=== PATIENT | male | born 1955 | race Caucasian/White ===

== ENCOUNTER 2019-07-17 10:54 | Emergency (ER) | payer MEDICARE, OTHER, SELFPAY ==
[2019-07-17] VITALS (78 sets, daily range): BP systolic 107–158; BP diastolic 59–96; PULSE 69–74; RESP 11–35; TEMP 36.3–36.7; O2SAT 92–100
--- NOTE | 2019-07-17 11:13 | ED.GENADUL_ITS ---
Discharge Plan Disposition Patient Disposition: [facility] Condition: Stable Discharge Details Chief Complaint: Dizzy/Sync Clinical Impression: STEMI (ST elevation myocardial infarction), Dizziness Primary Care Provider: Andrew Sotelo ED Provider: Diana García Home Meds and New Rx's Prescriptions: No Action Victoza 2-Alex 0.6 mg/0.1 mL (18 mg/3 mL) Pen Injector 1.2 mg SUBCUT DAILY RF: 0 fosinopril 10 mg Tablet 10 mg PO DAILY RF: 0 metformin 500 mg Tablet 500 mg PO BID RF: 0 aspirin 325 mg Tablet 325 mg PO DAILY RF: 0 isosorbide mononitrate 30 mg Tablet Extended Release 24 Hr 30 mg PO DAILY RF: 0 clopidogrel 75 mg Tablet 75 mg PO DAILY RF: 0 allopurinol 100 mg Tablet 100 mg PO DAILY RF: 0 famotidine 20 mg Tablet 20 mg PO DAILY RF: 0 ascorbic acid (vitamin C) [Vitamin C] 500 mg Tablet 500 mg PO DAILY RF: 0 nitroglycerin 0.4 mg Tablet, Sublingual 0.4 mg SUBLINGUAL Q5-15M PRNRF: 0 folic acid 1 mg Tablet 1 mg PO DAILY RF: 0 fluticasone propionate [Flonase Allergy Relief] 50 mcg/actuation [place],Suspension 1 spray INTRANASAL DAILY PRNRF: 0 ezetimibe 10 mg Tablet 10 mg PO DAILY RF: 0 rosuvastatin 20 mg Tablet 20 mg PO DAILY RF: 0 Lantus Solostar U-100 Insulin 100 unit/mL (3 mL) Insulin Pen See Rx Instructions .ROUTE .COMPLEX RF: 0 ranolazine 1,000 mg Tablet Extended Release 12 Hr 1,000 mg PO BID RF: 0 magnesium chloride 64 mg Tablet,Delayed Release (Dr/Ec) 250 mg PO DAILY RF: 0 Discharge Data Discharge Date/Time-TO BE ENTERED AT DEPARTURE: 07/17/19 13:16 Medical Decision Making 1110 -- 63-year-old male with multiple medical problems including CAD status post CABG, diabetes, hypertension, hyperlipidemia and obesity with dizziness and vomiting since this morning. He denies chest pain or shortness of breath. Patient appears somewhat uncomfortable with slowed responses but no focal deficits. Presentation does not appear consistent with acute CVA but rather possibly dehydration from the frequent vomiting. EKG notes a rate of 73, sinus, first-degree block with [address] depression in 1 and aVL and [address] elevation in lead III. No old EKG to compare. Will call patient's hospital in [place] for old EKGs. Differential diagnosis includes ACS, electrolyte abnormality, viral illness, gastroenteritis, DKA, UTI, pneumonia. Will place an IV, give bolus IV fluids, screening labs, urinalysis, chest x-ray and dose of Zofran and reassess. Old EKGs from [place] date back to 2011 and this appears new compared to these EKGs which had no depression or ST elevation. Also reviewed EKG with Dr. Liborio Rooney, agrees does not meet criteria to call official STEMI, will call [facility] for consult/possible transfer. Labs reviewed. Normal white blood cell count, electrolytes. Mag 1.7. Troponin negative. BNP and Lipase within normal limits. Chest x-ray negative. Urinalysis negative for infection. 1230 -- d/w [facility] cardiology - they are calling a STEMI alert. Patient took 325 aspirin this morning. Would like 300 mg Plavix, heparin bolus and drip and full dose lytics. She accepted for transfer to [facility]. Accepting physician Dr. Kamara. Patient and informed of plan. Patient states that he had a recent EKG with [facility] in [place], [place] in the past 6 months. Unable to obtain these recent EKGs from [facility]. Medical Records Medical records reviewed: Yes I reviewed the patient's medical records. Imaging Data Radiologic Study: Radiologist's impression: XR Chest, 1 View EXAM DATE/TIME: 07/17/2019 11:24 AM CLINICAL HISTORY: 63 years old, male; Other: Nausea and vomiting, and dizziness since this morning TECHNIQUE: Imaging protocol: XR of the chest Views: 1 view. COMPARISON: No relevant prior studies available. FINDINGS: Lungs: Unremarkable. No consolidation. Pleural space: Unremarkable. No pleural effusion. No pneumothorax. Heart/Mediastinum: Unremarkable. No cardiomegaly. Diaphragm: Elevated right hemidiaphragm Bones/joints: Median sternotomy Other findings: Overlying EKG wires IMPRESSION: No acute process Lab Data Lab results reviewed: Yes I reviewed the patient's lab results. Labs: Laboratory Tests Range/Units 07/17/19 07/17/19 07/17/19 11:25 11:25 11:25 WBC (4.4-10.8) k/cumm 10.02 RBC (4.50-6.00) m/cumm 4.49 L Hgb (13.5-17.5) g/dL 14.9 Hct (40.0-50.0) % 43.2 MCV (80-95) fL 96.2 H MCH (27.0-33.0) pg 33.2 H MCHC (32.0-36.0) g/dL 34.5 RDW (11.8-14.1) % 13.0 Plt Count (130-400) x1000/uL 201 MPV (8.0-11.0) fL 10.7 Immature Gran % 0.4 Neutrophils % 75.3 Lymphocytes % 17.8 Monocytes % 5.1 Eosinophils % 1.3 Basophils % 0.1 Absolute Neutrophils (1.2-6.7) k/cumm 7.55 H Absolute Lymphocytes (1.2-3.4) k/cumm 1.78 Absolute Monocytes (0.11-0.7) k/cumm 0.51 Absolute Eosinophils (0.0-0.7) k/cumm 0.13 Absolute Basophils (0.0-0.2) k/cumm 0.01 Sodium (136-145) mmol/L 140 Potassium (3.5-5.1) mmol/L 4.8 Chloride (98-107) mmol/L 103 Carbon Dioxide (21.0-32.0) mmol/L 26.0 Anion Gap (3-11) mmol/L 11.0 BUN (7-18) mg/dL 28 H Creatinine (0.70-1.30) mg/dL 1.49 H Estimated GFR/1.73 m2 (mL/min/1.73m2) 47.48 Glucose (70-100) mg/dL 302 H Calcium (8.5-10.1) mg/dL 8.8 Magnesium (1.8-2.4) mg/dL 1.7 L Total Bilirubin (0.2-1.0) mg/dL 0.6 AST (15-37) U/L 26 ALT (16-63) U/L 43 Alkaline Phosphatase (46-116) U/L 65 Troponin I (0.00-0.06) ng/mL < 0.05 NT-Pro-B Natriuret Pep ( - 299) pg/mL 111 Total Protein (6.4-8.2) g/dL 7.2 Albumin (3.4-5.0) g/dL 3.7 Lipase (73-393) U/L 192 Urine Color (Yellow) Urine Clarity (Clear) Urine pH (5-8) Ur Specific [place] (1.005-1.025) Urine Protein (Negative) mg/dL Urine Ketones (Negative) mg/dL Urine Blood (Negative) Urine Nitrite (Negative) Urine Bilirubin (Negative) Urine Urobilinogen (Up TO 0.2) EU/dL Ur Leukocyte Esterase (Negative) Urine RBC (0-2) Urine WBC (0-5) HPF Ur Epithelial Cells (Negative) HPF Urine Crystals (Negative) HPF Urine Bacteria (Negative) HPF Urine Casts (Negative) LPF Urine Mucus (Negative) Ur Culture Indicated? Urine Glucose (Negative) mg/dL Range/Units 07/17/19 11:55 WBC (4.4-10.8) k/cumm RBC (4.50-6.00) m/cumm Hgb (13.5-17.5) g/dL Hct (40.0-50.0) % MCV (80-95) fL MCH (27.0-33.0) pg MCHC (32.0-36.0) g/dL RDW (11.8-14.1) % Plt Count (130-400) x1000/uL MPV (8.0-11.0) fL Immature Gran % Neutrophils % Lymphocytes % Monocytes % Eosinophils % Basophils % Absolute Neutrophils (1.2-6.7) k/cumm Absolute Lymphocytes (1.2-3.4) k/cumm Absolute Monocytes (0.11-0.7) k/cumm Absolute Eosinophils (0.0-0.7) k/cumm Absolute Basophils (0.0-0.2) k/cumm Sodium (136-145) mmol/L Potassium (3.5-5.1) mmol/L Chloride (98-107) mmol/L Carbon Dioxide (21.0-32.0) mmol/L Anion Gap (3-11) mmol/L BUN (7-18) mg/dL Creatinine (0.70-1.30) mg/dL Estimated GFR/1.73 m2 (mL/min/1.73m2) Glucose (70-100) mg/dL Calcium (8.5-10.1) mg/dL Magnesium (1.8-2.4) mg/dL Total Bilirubin (0.2-1.0) mg/dL AST (15-37) U/L ALT (16-63) U/L Alkaline Phosphatase (46-116) U/L Troponin I (0.00-0.06) ng/mL NT-Pro-B Natriuret Pep ( - 299) pg/mL Total Protein (6.4-8.2) g/dL Albumin (3.4-5.0) g/dL Lipase (73-393) U/L Urine Color (Yellow) Dark yellow Urine Clarity (Clear) Clear Urine pH (5-8) 5.0 Ur Specific [place] (1.005-1.025) >= 1.030 H Urine Protein (Negative) mg/dL 100 H Urine Ketones (Negative) mg/dL Trace H Urine Blood (Negative) Negative Urine Nitrite (Negative) Negative Urine Bilirubin (Negative) Negative Urine Urobilinogen (Up TO 0.2) EU/dL 0.2 Ur Leukocyte Esterase (Negative) Negative Urine RBC (0-2) Negative Urine WBC (0-5) HPF 0-2 Ur Epithelial Cells (Negative) HPF Few Urine Crystals (Negative) HPF Negative Urine Bacteria (Negative) HPF Negative Urine Casts (Negative) LPF 5-10 hyaline Urine Mucus (Negative) Moderate Ur Culture Indicated? No Urine Glucose (Negative) mg/dL 500 H ECG Data Attestation: I personally reviewed and interpreted this ECG (s) as follows: Interpretation: Rate of 73, sinus, first-degree block. There is [address] depression in 1 and aVL with [address] elevation in lead III. RI 236. QTc 445. QRS 118. HPI General Mode of arrival: ambulatory . Date/Time Provider Initiated Documentation: 07/17/19 11:05 . Limitations to Documentation: no limitations . Information obtained by: patient and family . HPI Narrative: Patient is a 63-year-old male with a history of coronary artery disease and CABG, diabetes, hypertension, hyperlipidemia who presents with dizziness and vomiting that started this morning. He states he has had similar episodes in the past but usually resolve once his vomiting passes. He states continued vomiting today which is mainly consistent of water, food and bile. He denies any hematemesis, diarrhea or melena. He states he felt fine yesterday. He states yesterday he and his drove from [place] to visit from on and he was feeling fine. He denies any fever, headache, blurry vision, chest pain, shortness of breath, abdominal pain, urinary symptoms or unilateral numbness or weakness. He states his last bowel movement was yesterday within normal limits. He denies any leg pain or swelling. Related Data Home Medications Medication Instructions Recorded Confirmed allopurinol 100 mg PO DAILY 07/17/19 07/17/19 ascorbic acid (vitamin C) [Vitamin 500 mg PO DAILY 07/17/19 07/17/19 C] aspirin 325 mg PO DAILY 07/17/19 07/17/19 clopidogrel 75 mg PO DAILY 07/17/19 07/17/19 ezetimibe 10 mg PO DAILY 07/17/19 07/17/19 famotidine 20 mg PO DAILY 07/17/19 07/17/19 fluticasone propionate [Flonase 1 spray INTRANASAL DAILY PRN 07/17/19 07/17/19 Allergy Relief] folic acid 1 mg PO DAILY 07/17/19 07/17/19 fosinopril 10 mg PO DAILY 07/17/19 07/17/19 insulin glargine [Lantus Solostar See Rx Instructions .ROUTE .COMPLEX 07/17/19 07/17/19 U-100 Insulin] isosorbide mononitrate 30 mg PO DAILY 07/17/19 07/17/19 liraglutide [Victoza 2-Alex] 1.2 mg SUBCUT DAILY 07/17/19 07/17/19 magnesium chloride 250 mg PO DAILY 07/17/19 07/17/19 metformin 500 mg PO BID 07/17/19 07/17/19 nitroglycerin 0.4 mg SUBLINGUAL Q5-15M PRN 07/17/19 07/17/19 ranolazine 1,000 mg PO BID 07/17/19 07/17/19 rosuvastatin 20 mg PO DAILY 07/17/19 07/17/19 Allergies Allergy/AdvReac Type Severity Reaction Status Date / Time No Known Allergies Allergy Unverified 07/17/19 11:06 General Stated Complaint: Dizzy/Sync SEEMA: 2 Review of Systems Review of Systems ROS Unobtainable: All systems reviewed & are unremarkable except as noted in HPI and below Constitutional Constitutional: Reports as per HPI, Denies chills and Denies fever(s) Eyes Eyes: Denies blurry vision ENT Ears, Nose, Mouth, and Throat: Reports dizziness, Denies sore throat and Denies throat swelling Cardiovascular Cardiovascular: Denies chest pain and Denies dyspnea Respiratory Respiratory: Denies cough and Denies dyspnea Gastrointestinal Gastrointestinal: Denies abdominal pain, Denies diarrhea and Reports vomiting Genitourinary Genitourinary: Denies hematuria and Denies dysuria Musculoskeletal Musculoskeletal: Denies back pain and Denies numbness Integumentary/Breasts Skin/Breast: Denies lesions and Denies rash Neurologic Neurologic: Reports dizziness, Denies focal weakness and Denies numbness Allergic/Immunologic Allergic/Immunologic: Denies throat swelling [facility] Medical History Coronary artery disease (Chronic) Diabetes (Chronic) HTN (hypertension) (Chronic) Hx of hyperlipidemia (Acute) Surgical History History of hernia repair (Chronic) History of prostatectomy (Chronic) Hx of CABG (Chronic) Social History Smoking/Tobacco Use Status: Never Alcohol Intake: current Alcohol Intake frequency: a few times a month Drug use: Never Substance use type: does not use Do you feel safe at home: Yes Do you feel safe in your relationship?: Yes Exam Const General: cooperative, healthy appearing and no acute distress HENNV Head: normal to inspection Face and sinus: normal facial exam Eyes General: appearance normal, both eyes and all related structures Pupils: PERRL EOM: EOM intact bilaterally Neck Neck: normal visual inspection and No submandibular swelling Lymphatic: no lymphadenopathy noted Chest Chest: normal inspection of the chest, no tenderness and other (midline scar, well healed, c/w CABG) Resp Effort & Inspection: normal respiratory effort and able to speak in complete sentences Auscultation: clear to auscultation bilaterally Cardio Rate: regular rate Rhythm: regular rhythm GI Inspection: normal to inspection Palpation: soft, not firm, not rigid and nontender Auscultation: normal bowel sounds Back/Spine/Pelvis Thoracic/Lumbar Spine: thoracic and lumbar spine normal to inspection Skin General skin exam: no rashes or lesions noted Neuro General: alert, awake, oriented x3 and moves all extremities Cranial Nerves: CN's II-XI intact bilaterally Cognition: normal cognition Speech: no expressive aphasia, no receptive aphasia and other (speech somewhat slowed but not slurred) Motor: muscle tone normal throughout and strength 5/5 throughout Sensory Exam: no sensory deficits noted Extrem General: normal to inspection, full ROM, normal capillary refill, no calf tenderness bilaterally and no edema Psych Appearance: grossly normal Mental Status: mental status grossly normal Speech and Movement: speech and movement normal Affect: normal affect Course Vital Signs Vital signs: Vital Signs Temperature 97.3 F L 07/17/19 11:00 Pulse 73 07/17/19 11:00 Respiratory Rate 21 07/17/19 11:00 Blood Pressure 158/79 H 07/17/19 11:00 Pulse Oximetry 100 07/17/19 11:00 Temperature 97.3 F L 07/17/19 11:00 Temperature Source Skin 07/17/19 11:00 Pulse 73 07/17/19 11:00 Respiratory Rate 21 07/17/19 11:00 Blood Pressure 158/79 H 07/17/19 11:00 Blood Pressure Position Sitting 07/17/19 11:00 Pulse Oximetry 100 07/17/19 11:00 Oxygen Delivery Method Room Air 07/17/19 11:00 Oxygen Flow Rate 0 07/17/19 11:00 Pain Level 0 07/17/19 11:00
--- NOTE | 2019-07-17 11:25 | DI.RAD_ITS ---
SYMPTOM/DIAGNOSIS: DIZZY, VOMITING PORTABLE AP CHEST: The lungs are well expanded and free of infiltrate. There is no evidence of a pleural effusion or pneumothorax. The heart is not enlarged. There is some elevation of the right hemidiaphragm. The patient is status post median sternotomy. Overlying EKG wires are apparent. SUMMARY: No acute abnormality is seen.
[2019-07-17 11:33] LABS: Abs Immature Grans 0.04 k/cumm (0.0-0.09); Absolute Basophil Count 0.01 k/cumm (0.0-0.2); Absolute Eosinophil Count 0.13 k/cumm (0.0-0.7); Absolute Lymphocyte Count 1.78 k/cumm (1.2-3.4); Absolute Monocyte Count 0.51 k/cumm (0.11-0.7); Absolute Neutrophil Count 7.55 k/cumm (1.2-6.7); Basophils % 0.1; Eosinophils % 1.3; HCT 43.2 % (40.0-50.0); HGB 14.9 g/dL (13.5-17.5); Immature Grans % 0.4; Lymphocytes % 17.8; Mean Corp. HGB Concentration 34.5 g/dL (32.0-36.0); Mean Corpuscular Hemoglobin 33.2 pg (27.0-33.0); Mean Corpuscular Volume 96.2 fL (80-95); Mean Platelet Volume 10.7 fL (8.0-11.0); Monocytes % 5.1; Neutrophils % 75.3; Platelet Count 201 x1000/uL (130-400); RBC 4.49 m/cumm (4.50-6.00); White Blood Cell Count 10.02 k/cumm (4.4-10.8)
[2019-07-17] MEDS: Ondansetron 4 MG/2 ML VIAL IVP (11:40)
[2019-07-17] MEDS: Normal Saline 500 ML IV (11:43)
--- NOTE | 2019-07-17 11:51 | DI.VRAD_ITS ---
EXAM: XR Chest, 1 View EXAM DATE/TIME: 07/17/2019 11:24 AM CLINICAL HISTORY: 63 years old, male; Other: Nausea and vomiting, and dizziness since this morning TECHNIQUE: Imaging protocol: XR of the chest Views: 1 view. COMPARISON: No relevant prior studies available. FINDINGS: Lungs: Unremarkable. No consolidation. Pleural space: Unremarkable. No pleural effusion. No pneumothorax. Heart/Mediastinum: Unremarkable. No cardiomegaly. Diaphragm: Elevated right hemidiaphragm Bones/joints: Median sternotomy Other findings: Overlying EKG wires IMPRESSION: No acute process Dictated and Authenticated by: Cl Keita MD. Ordering:SEBASTIAN Ortiz MD
[2019-07-17 11:59] LABS: ALT 43 U/L (16-63); AST 26 U/L (15-37); Albumin 3.7 g/dL (3.4-5.0); Alkaline Phosphatase 65 U/L (46-116); BUN 28 mg/dL (7-18); Bilirubin, Total 0.6 mg/dL (0.2-1.0); CREATININE 1.49 mg/dL (0.70-1.30); Calcium 8.8 mg/dL (8.5-10.1); Chloride 103 mmol/L (98-107); Estimated GFR 47.48 (mL/min/1.73m2); Glucose 302 mg/dL (70-100); Lipase 192 U/L (73-393); Magnesium 1.7 mg/dL (1.8-2.4); Potassium 4.8 mmol/L (3.5-5.1); Sodium 140 mmol/L (136-145); Total Protein 7.2 g/dL (6.4-8.2)
[2019-07-17 12:00] LABS: NT-proBNP 111 pg/mL; Troponin I < 0.05 ng/mL (0.00-0.06)
[2019-07-17 12:04] LABS: Bilirubin Negative (Negative); Blood Negative (Negative); Clarity Clear (Clear); Glucose 500 mg/dL (Negative); Ketones Trace mg/dL (Negative); Leukocyte Esterase Negative (Negative); Nitrite Negative (Negative); Specific Gravity >= 1.030 (1.005-1.025); Urobilinogen 0.2 EU/dL (Up TO 0.2)
[2019-07-17 12:14] LABS: Epithelial Cells Few HPF (Negative); RBC Negative (0-2); WBC 0-2 HPF (0-5)
[2019-07-17 12:15] LABS: Bacteria Negative HPF (Negative); Crystals Negative HPF (Negative); Mucus Moderate (Negative)
[2019-07-17 12:16] LABS: C & S Indicated? No; Casts 5-10 Hyaline LPF (Negative)
[2019-07-17] MEDS: Heparin 5,000 UNITS/ML VIAL 4000 UNITS IV (12:44)
[2019-07-17] MEDS: Clopidogrel 300 MG TAB PO (12:47)
[2019-07-17] MEDS: Tenecteplase 50 MG KIT IVP (12:57)
[2019-07-17 13:14] LABS: INR 1.1 (0.9-1.1); PTT Activated 21.4 sec (21.0-31.4); Prothrombin Time 10.7 sec (9.3-11.0)
== END 2019-07-17 13:16 | disposition short-term general hospital (02) ==
PROVIDERS: Emergency Provider Physician Assistant; PCP Family Medicine
DX: I21.3 ST elevation (STEMI) myocardial infarction of unspecified site (principal); R42 Dizziness and giddiness; I25.10 Atherosclerotic heart disease of native coronary artery without angina pectoris; Z95.1 Presence of aortocoronary bypass graft; E11.9 Type 2 diabetes mellitus without complications; Z79.4 Long term (current) use of insulin; I10 Essential (primary) hypertension
CPT/HCPCS: 36415; 80053; 83690; 93005; 96365; 96375; 96376; 99285; 71045; 81003; 81015; 83735; 83880; 84484; 85025; 85610; 85730; 93010; J1644; J2405; J3101